=== PATIENT | female | born 1995 | race Caucasian/White ===

== ENCOUNTER 2017-07-21 10:30 | Inpatient (IN) | payer OTHER ==
[~2017-07-21] VITALS: Ht 164 cm; Wt 65.8 kg
[2017-07-21] MEDS ORDERED: RINGERS SOLUTION,LACTATED 1,000 ML IV PRN (10:59)
[2017-07-21] MEDS ORDERED: METOCLOPRAMIDE HCL 5 MG/ML 2 ML VIAL IVP PRN (11:00)
[2017-07-21] MEDS ORDERED: CITRIC ACID/SODIUM CITRATE 30 ML SOLUTION UDCUP PO PRN (11:00)
[2017-07-21 11:48] LABS: BASOPHILS % (AUTO) 0.4 % (0.0-2.0); EOSINOPHILS % (AUTO) 1.5 % (1.0-6.0); HEMATOCRIT 32.5 % (36-46); HEMOGLOBIN 11.2 g/dL (12.0-16.0); LYMPHOCYTES # (AUTO) 1.6 K/uL (1.0-4.8); MEAN CORPUSCULAR HEMOGLOBIN 30.7 pg (26.0-34.0); MEAN CORPUSCULAR HGB CONC 34.4 G/dL (31.0-37.0); MEAN CORPUSCULAR VOLUME 89 fL (80-100); MONOCYTES # (AUTO) 0.5 K/uL (0.1-1.0); MONOCYTES % (AUTO) 6.1 % (2.0-9.0); NEUTROPHILS # (AUTO) 6.3 K/uL (1.8-7.7); RED BLOOD CELL COUNT(AUTO) 3.63 MIL/uL (4.00-5.20); RED CELL DISTRIBUTION WIDTH 12.7 % (11.5-14.5); WHITE BLOOD COUNT (AUTO) 8.7 K/uL (4.5-11.0)
[2017-07-21] MEDS: RINGERS SOLUTION,LACTATED 1,000 ML IV SCH ×2 (12:00→20:08)
[2017-07-21] MEDS ORDERED: PREN1TAB80 PO (13:09)
[2017-07-21] MEDS: OXYTOCIN 30 UNITS/LACT RINGERS 500 ML IV PRN (13:31)
[2017-07-21 14:48] VITALS: BP 111/76
[2017-07-21 15:06] LABS: APPEARANCE,URINE CLEAR (CLEAR); GLUCOSE, URINE (UA) NEGATIVE (NEGATIVE); KETONES,URINE NEGATIVE (NEGATIVE); LEUKOCYTE ESTERASE ,URINE NEGATIVE (NEGATIVE); OCCULT BLOOD,URINE NEGATIVE (NEGATIVE); PROTEIN,URINE NEGATIVE (NEGATIVE)
[2017-07-21 15:15] LABS: ADD UA MICROSCOPIC NO
[2017-07-21] MEDS ORDERED: AMPICILLIN SODIUM 2 GM/NS 100 ML IV ONE (15:30)
[2017-07-21] MEDS ORDERED: INFLUENZA VIRUS VACCINE QVS 2017-18 (3YR+)/PF 60 MCG/0.5 ML SYRINGE IM ONE (19:15)
[2017-07-21] MEDS ORDERED: OXYGEN THERAPY IH SCH (20:00)
[2017-07-21] MEDS: AMPICILLIN SODIUM 1 GM/NS 50 ML IV SCH (20:07)
[2017-07-22] MEDS: AMPICILLIN SODIUM 1 GM/NS 50 ML IV SCH ×3 (00:08→08:14)
[2017-07-22] MEDS: FentaNYL CITRATE-PF 100 MCG/2 ML VIAL IVP PRN ×2 (00:08→00:14)
[2017-07-22] MEDS ORDERED: FentaNYL/BUPIV 0.125%/NS/PF 200 ML ED ONE (01:52)
[2017-07-22] MEDS ORDERED: LIDOCAINE HCL 2%/EPI 1:200,000/PF 20 ML VIAL ONE (01:52)
[2017-07-22] MEDS: RINGERS SOLUTION,LACTATED 1,000 ML IV SCH ×2 (04:04→11:09)
[2017-07-22] MEDS: OXYTOCIN 30 UNITS/LACT RINGERS 500 ML IV PRN (09:13)
[2017-07-22] MEDS ORDERED: OXYTOCIN 20 UNITS/LACT RINGERS 1,000 ML IV SCH (10:40)
[2017-07-22] MEDS ORDERED: BENZOCAINE 20%/MENTHOL 56 GM SPRAY CANISTER TP PRN (10:45)
[2017-07-22] MEDS ORDERED: MAGNESIUM HYDROXIDE SUSPENSION 30 ML UDCUP PO PRN (10:45)
[2017-07-22] MEDS ORDERED: MEASLES/MUMPS/RUBELLA VACCINE, LIVE 0.5 ML/VIAL SQ ONE (10:45)
[2017-07-22] MEDS ORDERED: GLYCERIN/WITCH HAZEL LEAF 40 PADS JAR TP PRN (10:45)
[2017-07-22] MEDS ORDERED: LANOLIN 7 GM OINTMENT TP PRN (10:45)
[2017-07-22] MEDS ORDERED: SENNA/DOCUSATE SODIUM 187-50 MG TABLET PO PRN (10:45)
[2017-07-22] MEDS: IBUPROFEN 600 MG TABLET PO PRN ×2 (11:09→18:10)
[2017-07-22] MEDS: ACETAMINOPHEN/CODEINE 300-30 MG TABLET PO PRN (19:56)
[2017-07-23] MEDS: IBUPROFEN 800 MG TABLET PO SCH ×3 (00:05→12:09)
[2017-07-23 06:21] LABS: BASOPHILS % (AUTO) 0.2 % (0.0-2.0); EOSINOPHILS % (AUTO) 2.4 % (1.0-6.0); HEMOGLOBIN 7.1 g/dL (12.0-16.0); LYMPHOCYTES # (AUTO) 2.2 K/uL (1.0-4.8); LYMPHOCYTES % (AUTO) 23.9 % (22.0-44.0); MEAN CORPUSCULAR HEMOGLOBIN 30.6 pg (26.0-34.0); MEAN CORPUSCULAR HGB CONC 33.8 G/dL (31.0-37.0); MEAN CORPUSCULAR VOLUME 91 fL (80-100); MONOCYTES # (AUTO) 0.6 K/uL (0.1-1.0); MONOCYTES % (AUTO) 6.2 % (2.0-9.0); NEUTROPHILS # (AUTO) 6.2 K/uL (1.8-7.7); NEUTROPHILS % (AUTO) 67.3 % (40.0-70.0); RED BLOOD CELL COUNT(AUTO) 2.31 MIL/uL (4.00-5.20); RED CELL DISTRIBUTION WIDTH 12.7 % (11.5-14.5); WHITE BLOOD COUNT (AUTO) 9.2 K/uL (4.5-11.0)
[2017-07-23 07:09] LABS: HEMATOCRIT 20.9 % (36-46)
[2017-07-23] MEDS: ACETAMINOPHEN/CODEINE 300-30 MG TABLET PO PRN (10:34)
[2017-07-23 12:15] LABS: BASOPHILS % (AUTO) 0.3 % (0.0-2.0); EOSINOPHILS % (AUTO) 1.2 % (1.0-6.0); HEMATOCRIT 23.2 % (36-46); LYMPHOCYTES # (AUTO) 1.3 K/uL (1.0-4.8); LYMPHOCYTES % (AUTO) 15.7 % (22.0-44.0); MEAN CORPUSCULAR HEMOGLOBIN 30.9 pg (26.0-34.0); MEAN CORPUSCULAR HGB CONC 34.5 G/dL (31.0-37.0); MEAN CORPUSCULAR VOLUME 90 fL (80-100); MONOCYTES # (AUTO) 0.5 K/uL (0.1-1.0); MONOCYTES % (AUTO) 5.8 % (2.0-9.0); NEUTROPHILS # (AUTO) 6.4 K/uL (1.8-7.7); RED BLOOD CELL COUNT(AUTO) 2.59 MIL/uL (4.00-5.20); RED CELL DISTRIBUTION WIDTH 12.7 % (11.5-14.5); WHITE BLOOD COUNT (AUTO) 8.3 K/uL (4.5-11.0)
[2017-07-23] MEDS ORDERED: DSS100 PO (12:45)
[2017-07-23] MEDS ORDERED: FERR-89 PO (12:45)
[2017-07-23] MEDS ORDERED: IBUP-2070 PO (12:45)
== END 2017-07-23 13:30 | disposition home or self-care (01) | DRG 775 ==
LOC: OBSVTOIN 10:30 → 4S 10:30
PROVIDERS: ADMIT Obstetrics & Gynecology; ATTEND Obstetrics & Gynecology
PROC: 10E0XZZ Delivery of Products of Conception, External Approach (ICD-10-PCS; principal; 2017-07-22)
PROC: 0KQM0ZZ Repair Perineum Muscle, Open Approach (ICD-10-PCS; 2017-07-22)
PROC: 3E0R3BZ Introduction of Anesthetic Agent into Spinal Canal, Percutaneous Approach (ICD-10-PCS; 2017-07-22)
PROC: 00HU33Z Insertion of Infusion Device into Spinal Canal, Percutaneous Approach (ICD-10-PCS; 2017-07-22)
PROC: 10907ZC Drainage of Amniotic Fluid, Therapeutic from Products of Conception, Via Natural or Artificial Opening (ICD-10-PCS; 2017-07-22)
PROC: 3E0234Z Introduction of Serum, Toxoid and Vaccine into Muscle, Percutaneous Approach (ICD-10-PCS; 2017-07-23)
DX: O70.1 Second degree perineal laceration during delivery (principal); Z37.0 Single live birth; Z23 Encounter for immunization; Z3A.38 38 weeks gestation of pregnancy
CPT/HCPCS: 86850; 86900; 86901; 90471; J0290; J2590; J3010; J3490; J7120